=== PATIENT | male | born 1970 | race Caucasian/White ===

== ENCOUNTER 2017-05-05 06:19 | Emergency (ER) | payer MEDICAID, OTHER ==
[2017-05-05] MEDS ORDERED: BARIUM SULF 2% 450 ML BTL (BERRY SMOOTHIE) PO (07:00)
[2017-05-05] MEDS: ONDANSETRON 4 MG INJ IV (07:18)
[2017-05-05] MEDS: KETOROLAC 30 MG INJ IV (07:18)
[2017-05-05] MEDS: SOD CHLORIDE 0.9% 1,000 ML IV (07:19)
[2017-05-05] MEDS: morphine 4 MG/ML VIAL IV (07:19)
[2017-05-05 07:30] LABS: ADD MAN DIFF? NO
[2017-05-05 07:49] LABS: BASOPHILS % 0.1 % (0.0-2.0); EOSINOPHILS % 0.1 % (0.0-7.0); HEMATOCRIT 40.7 % (42.0-52.0); HEMOGLOBIN 13.6 g/dl (14.0-18.0); LYMPHOCYTES # 1.9 10^3/ul (0.8-2.9); MEAN CORPUSCULAR HEMOGLOBIN 29.8 pg (29.0-33.0); MEAN CORPUSCULAR HGB CONC 33.4 g/dl (32.0-37.0); MEAN CORPUSCULAR VOLUME 89.1 fl (82.0-101.0); MEAN PLATELET VOLUME 11.5 fl (7.4-10.4); MONOCYTE # 0.5 10^3/ul (0.3-0.9); MONOCYTES % 4.4 % (0.0-11.0); NEUTROPHILS % 80.1 % (39.0-77.0); PLATELET COUNT 185 10^3/UL (140-415); RED BLOOD COUNT 4.57 10^6/ul (4.70-6.10); RED CELL DISTRIBUTION WIDTH 12.6 % (11.5-14.5)
[2017-05-05 07:49] LABS: WHITE BLOOD COUNT 12.4 10^3/ul (4.8-10.8)
[2017-05-05 08:08] LABS: INR 0.96; PARTIAL THROMBOPLASTIN TIME 26.6 Sec (25.0-35.0); PROTIME 12.9 Sec (11.9-14.9)
[2017-05-05 08:10] LABS: ALANINE AMINOTRANSFERASE 64 IU/L (13-69); ALBUMIN 4.7 g/dl (3.3-4.9); ALBUMIN/GLOBULIN RATIO 1.42; ALKALINE PHOSPHATASE 67 IU/L (42-121); AMYLASE 112 U/L (11-123); ANION GAP 17 (8-16); ASPARTATE AMINO TRANSFERASE 48 IU/L (15-46); BILIRUBIN,INDIRECT 0.2 mg/dl (0-1.1); BILIRUBIN,TOTAL 0.2 mg/dl (0.2-1.3); BLOOD UREA NITROGEN 15 mg/dl (7-20); CALCIUM 9.5 mg/dl (8.4-10.2); CARBON DIOXIDE 25 mmol/L (21-31); CHLORIDE 109 mmol/L (97-110); CREATININE 1.11 mg/dl (0.61-1.24); GLUCOSE 140 mg/dl (70-220); LIPASE 77 U/L (23-300); POTASSIUM 3.7 mmol/L (3.5-5.1); SODIUM 147 mmol/L (135-144)
[2017-05-05 08:27] LABS: TROPONIN-I < 0.012 ng/ml (0.00-0.12)
[2017-05-05] MEDS: TAMSULOSIN (SR) 0.4 MG CAP PO (09:58)
== END 2017-05-05 10:21 | disposition home or self-care (01) ==
LOC: E/R 06:19
DX: N20.0 Calculus of kidney (principal); R40.2142 Coma scale, eyes open, spontaneous, at arrival to emergency department; R40.2362 Coma scale, best motor response, obeys commands, at arrival to emergency department; R40.2252 Coma scale, best verbal response, oriented, at arrival to emergency department
CPT/HCPCS: 74176; 80053; 82150; 83690; 84484; 85025; 85610; 85730; 93005; 96374; 96375; 99285-25